=== PATIENT | male | born 1940 | race Caucasian/White ===

== ENCOUNTER → 2016-05-21 | Outpatient (CLI) | payer OTHER | LOC: BMCIMAGING 10:45 | PROVIDERS: ATTEND Physician Assistant | DX: M25.561 Pain in right knee (principal) ==

== ENCOUNTER → 2017-03-31 | Outpatient (CLI) | payer OTHER | LOC: FIMAGING 13:58 | PROVIDERS: ATTEND Physician Assistant Medical | DX: Z13.820 Encounter for screening for osteoporosis (principal); M81.0 Age-related osteoporosis without current pathological fracture; S22.060A Wedge compression fracture of T7-T8 vertebra, initial encounter for closed fracture; E07.9 Disorder of thyroid, unspecified; Z85.46 Personal history of malignant neoplasm of prostate ==

== ENCOUNTER → 2018-05-16 | Outpatient (CLI) | payer OTHER | LOC: EMCIMAGING 13:08 | PROVIDERS: ATTEND Orthopaedic Surgery | DX: I80.02 Phlebitis and thrombophlebitis of superficial vessels of left lower extremity (principal) | CPT/HCPCS: 93971-PN ==